=== PATIENT | female | born 1960 | race Caucasian/White ===

== ENCOUNTER 2021-05-25 12:14 | Inpatient (IN) | payer BC ==
[2021-05-25] MEDS ORDERED: CLINDAMYCIN 600MG PREMIX IVPB 600 MG/50 ML BAG IVPB ONE (13:31)
[2021-05-25] MEDS ORDERED: IMIPENEM/CILASTATIN SODIUM 500 MG in SODIUM CHLORIDE 100 ML IV ONE (13:52)
[2021-05-25] MEDS ORDERED: VANCOMYCIN 1 GM in D5W (PRE-DOCKED) 1,000 MG/250 ML IVPB ONE (13:59)
[2021-05-25 14:18] LABS: BASO % 0.7 % (0-2.0); EOS % 1.9 % (0-4.5); HEMATOCRIT 35.9 % (32.4-45.2); HEMOGLOBIN 12.1 GM/dL (10.7-15.3); LYMPH % 28.9 % (8-40); MCH 28.2 pg (25.7-33.7); MCHC 33.7 g/dl (32.0-36.0); MEAN CELL VOLUME 83.9 fl (80-96); MEAN PLT VOLUME 8.1 fl (7.5-11.1); MONO % 7.3 % (3.8-10.2); NEUT % 61.2 % (42.8-82.8); PLATELET COUNT 238 10^3/uL (134-434); RBC 4.28 M/mm3 (3.60-5.2); RDW 13.6 % (11.6-15.6); WHITE BLOOD COUNT 7.3 K/mm3 (4.0-10.0)
[2021-05-25 14:40] LABS: CHLORIDE 129 mmol/L (98-107)
[2021-05-25 14:42] LABS: BLOOD UREA NITROGEN 15.9 mg/dL (7-18); CALCIUM 8.8 mg/dL (8.5-10.1); CO2 32 mmol/L (21-32); GLUCOSE,RANDOM 115 mg/dL (74-106)
[2021-05-25 14:46] LABS: CREATININE 0.8 mg/dL (0.55-1.3); SGOT/AST 15 U/L (15-37); SGPT/ALT 23 U/L (13-61)
[2021-05-25 14:47] LABS: BILIRUBIN,TOTAL 0.5 mg/dL (0.2-1); TOT PROT 7.3 g/dl (6.4-8.2)
[2021-05-25] MEDS ORDERED: VANCOMYCIN 1 GM PREMIX - 1 GM/200 ML BAG IVPB ONE ×2 (14:47→15:03)
[2021-05-25 14:48] LABS: ALK PHOS 88 U/L (45-117)
[2021-05-25 14:53] LABS: ANION GAP 11 MMOL/L (8-16); SODIUM 173 mmol/L (136-145)
[2021-05-25] MEDS ORDERED: VANCOMYCIN 1,000 MG in DEXTROSE 5%-WATER - 250 ML IVPB ONE (15:05)
[2021-05-25] MEDS ORDERED: VANCOMYCIN 1 GRAM (PRE-DOCKED) 1,000 MG/250 ML BAG IVPB ONE ×2 (15:12→18:46)
[2021-05-25 16:18] LABS: CHLORIDE 105 mmol/L (98-107); SODIUM 143 mmol/L (136-145)
[2021-05-25 16:21] LABS: BLOOD UREA NITROGEN 15.2 mg/dL (7-18); CALCIUM 8.9 mg/dL (8.5-10.1); CO2 32 mmol/L (21-32); GLUCOSE,RANDOM 113 mg/dL (74-106)
[2021-05-25 16:24] LABS: CREATININE 0.8 mg/dL (0.55-1.3)
[2021-05-25 16:39] LABS: ANION GAP 6 MMOL/L (8-16)
[2021-05-25] MEDS ORDERED: POTASSIUM CHLORIDE TABS 20 MEQ TABLET.ER (FP) PO ONE ×3 (16:42→23:07)
[2021-05-25] MEDS ORDERED: POTASSIUM CHLORIDE 20 MEQ PREMIX IVPB 100 ML IVPB ONE (16:43)
[2021-05-25] MEDS ORDERED: KCL 10 MEQ IVPB 10 MEQ/100 ML INFUS.BAG IVPB ONE ×3 (17:27→20:15)
[2021-05-25] MEDS: KCL 10 MEQ IVPB 10 MEQ/100 ML INFUS.BAG IVPB SCH ×3 (17:34→20:19)
[2021-05-25] MEDS ORDERED: VANCOMYCIN HCL 1,500 MG in DEXTROSE 5%-WATER - 250 ML IVPB SCH ×2 (19:30→22:00)
[2021-05-25] MEDS ORDERED: VANCOMYCIN 2,000 MG in DEXTROSE 5%-WATER - 250 ML IVPB SCH (22:00)
[2021-05-25] MEDS ORDERED: ENOXAPARIN NA (PORCINE) 30 MG/0.3 ML DISP.SYRIN SQ SCH (22:00)
[2021-05-25 22:50] LABS: CALCIUM 8.2 mg/dL (8.5-10.1)
[2021-05-25 22:51] LABS: BLOOD UREA NITROGEN 14.3 mg/dL (7-18)
[2021-05-25 22:54] LABS: CREATININE 0.8 mg/dL (0.55-1.3)
[2021-05-25] MEDS ORDERED: ENOXAPARIN NA (PORCINE) 40 MG/0.4 ML DISP.SYRIN SQ ONE (23:29)
[2021-05-25] MEDS: ENOXAPARIN NA (PORCINE) 30 MG/0.3 ML DISP.SYRIN SQ SCH (23:34)
[2021-05-26 06:54] VITALS: BMI 49.3
[2021-05-26] MEDS ORDERED: VANCOMYCIN PREMIX 1.5 GM 1,500 MG/300 ML BAG IVPB SCH (07:00)
[2021-05-26 08:53] LABS: HEMATOCRIT 32.4 % (32.4-45.2); HEMOGLOBIN 10.9 GM/dL (10.7-15.3); MCH 28.2 pg (25.7-33.7); MCHC 33.6 g/dl (32.0-36.0); MEAN PLT VOLUME 8.4 fl (7.5-11.1); PLATELET COUNT 199 10^3/uL (134-434); RBC 3.85 M/mm3 (3.60-5.2); RDW 13.6 % (11.6-15.6); WHITE BLOOD COUNT 5.9 K/mm3 (4.0-10.0)
[2021-05-26 09:16] LABS: ALBUMIN 2.4 g/dl (3.4-5.0); BLOOD UREA NITROGEN 13.7 mg/dL (7-18); CALCIUM 8.4 mg/dL (8.5-10.1); MAGNESIUM 2.2 mg/dL (1.8-2.4)
[2021-05-26 09:17] LABS: CHOLESTEROL 145 mg/dL (50-200); TRIGLYCERIDES 93 mg/dL (0-150)
[2021-05-26 09:18] LABS: LDL CHOLESTEROL (ONLY SJRH) 96 mg/dL (5-100)
[2021-05-26 09:19] LABS: CREATININE 0.7 mg/dL (0.55-1.3); PHOSPHOROUS 2.6 mg/dL (2.5-4.9)
[2021-05-26 09:20] LABS: HDL CHOLESTEROL 34 mg/dL (40-60)
[2021-05-26 09:21] LABS: BILIRUBIN,TOTAL 0.6 mg/dL (0.2-1)
[2021-05-26] MEDS ORDERED: POTASSIUM CHLORIDE TABS 20 MEQ TABLET.ER (FP) PO ONE ×2 (09:36→15:41)
[2021-05-26] MEDS: ENOXAPARIN NA (PORCINE) 30 MG/0.3 ML DISP.SYRIN SQ SCH (09:57)
[2021-05-26] MEDS: VANCOMYCIN 1 GRAM (PRE-DOCKED) 1,000 MG/250 ML BAG IVPB SCH ×2 (09:57→23:00)
[2021-05-26] MEDS ORDERED: FUROSEMIDE 40 MG TABLET (FP) PO SCH (14:00)
[2021-05-26] MEDS: ENOXAPARIN NA (PORCINE) 40 MG/0.4 ML DISP.SYRIN SQ SCH (21:58)
[2021-05-27] MEDS ORDERED: BENZOCAINE/MENTH/CETYLPYRD CL 1 EACH LOZENGE MM PRN (08:04)
[2021-05-27 08:50] LABS: HEMATOCRIT 32.5 % (32.4-45.2); MCH 28.3 pg (25.7-33.7); MCHC 33.8 g/dl (32.0-36.0); MEAN CELL VOLUME 83.6 fl (80-96); MEAN PLT VOLUME 8.3 fl (7.5-11.1); PLATELET COUNT 172 10^3/uL (134-434); RBC 3.89 M/mm3 (3.60-5.2); RDW 13.8 % (11.6-15.6); WHITE BLOOD COUNT 4.9 K/mm3 (4.0-10.0)
[2021-05-27 09:10] LABS: CALCIUM 8.2 mg/dL (8.5-10.1)
[2021-05-27 09:11] LABS: BLOOD UREA NITROGEN 13.6 mg/dL (7-18)
[2021-05-27 09:14] LABS: CREATININE 0.8 mg/dL (0.55-1.3)
[2021-05-27] MEDS: VANCOMYCIN 1 GRAM (PRE-DOCKED) 1,000 MG/250 ML BAG IVPB SCH ×2 (10:17→21:55)
[2021-05-27] MEDS: ENOXAPARIN NA (PORCINE) 40 MG/0.4 ML DISP.SYRIN SQ SCH ×2 (10:17→21:54)
[2021-05-28 11:18] LABS: HEMATOCRIT 33.6 % (32.4-45.2); HEMOGLOBIN 11.4 GM/dL (10.7-15.3); MCH 28.4 pg (25.7-33.7); MCHC 34.1 g/dl (32.0-36.0); MEAN CELL VOLUME 83.5 fl (80-96); MEAN PLT VOLUME 8.1 fl (7.5-11.1); PLATELET COUNT 209 10^3/uL (134-434); RBC 4.02 M/mm3 (3.60-5.2); RDW 13.7 % (11.6-15.6); WHITE BLOOD COUNT 5.6 K/mm3 (4.0-10.0)
[2021-05-28] MEDS: ENOXAPARIN NA (PORCINE) 40 MG/0.4 ML DISP.SYRIN SQ SCH ×2 (11:18→23:09)
[2021-05-28] MEDS: VANCOMYCIN 1 GRAM (PRE-DOCKED) 1,000 MG/250 ML BAG IVPB SCH ×2 (11:20→23:09)
[2021-05-28 11:38] LABS: CALCIUM 8.4 mg/dL (8.5-10.1)
[2021-05-28 11:39] LABS: BLOOD UREA NITROGEN 13.1 mg/dL (7-18)
[2021-05-28 11:42] LABS: CREATININE 0.7 mg/dL (0.55-1.3)
[2021-05-28] MEDS ORDERED: ACETAMINOPHEN 325 MG TABLET (FP) PO PRN (11:56)
[2021-05-29] MEDS: ENOXAPARIN NA (PORCINE) 40 MG/0.4 ML DISP.SYRIN SQ SCH ×2 (09:12→23:44)
[2021-05-29 10:22] LABS: HEMATOCRIT 32.9 % (32.4-45.2); HEMOGLOBIN 11.5 GM/dL (10.7-15.3); MCHC 34.9 g/dl (32.0-36.0); MEAN CELL VOLUME 83.1 fl (80-96); PLATELET COUNT 196 10^3/uL (134-434); RBC 3.96 M/mm3 (3.60-5.2); RDW 14.1 % (11.6-15.6); WHITE BLOOD COUNT 5.3 K/mm3 (4.0-10.0)
[2021-05-29] MEDS: VANCOMYCIN 1 GRAM (PRE-DOCKED) 1,000 MG/250 ML BAG IVPB SCH ×2 (10:34→23:47)
[2021-05-29 10:59] LABS: BLOOD UREA NITROGEN 12.7 mg/dL (7-18); CALCIUM 8.1 mg/dL (8.5-10.1)
[2021-05-29 11:00] LABS: MAGNESIUM 2.2 mg/dL (1.8-2.4)
[2021-05-29 11:03] LABS: PHOSPHOROUS 2.7 mg/dL (2.5-4.9)
[2021-05-29 11:04] LABS: CREATININE 0.9 mg/dL (0.55-1.3)
[2021-05-30 08:41] LABS: BASO % 0.9 % (0-2.0); EOS % 3.3 % (0-4.5); HEMATOCRIT 33.5 % (32.4-45.2); HEMOGLOBIN 11.3 GM/dL (10.7-15.3); MCH 28.5 pg (25.7-33.7); MCHC 33.9 g/dl (32.0-36.0); MEAN PLT VOLUME 8.3 fl (7.5-11.1); NEUT % 55.8 % (42.8-82.8); PLATELET COUNT 170 10^3/uL (134-434); RBC 3.98 M/mm3 (3.60-5.2); RDW 13.7 % (11.6-15.6); WHITE BLOOD COUNT 4.9 K/mm3 (4.0-10.0)
[2021-05-30 09:00] LABS: ALBUMIN 2.3 g/dl (3.4-5.0); CALCIUM 8.2 mg/dL (8.5-10.1); MAGNESIUM 2.3 mg/dL (1.8-2.4)
[2021-05-30 09:03] LABS: PHOSPHOROUS 3.2 mg/dL (2.5-4.9)
[2021-05-30 09:04] LABS: CREATININE 0.7 mg/dL (0.55-1.3)
[2021-05-30 09:17] LABS: BILIRUBIN,TOTAL 0.3 mg/dL (0.2-1)
[2021-05-30] MEDS ORDERED: PT OWN MED DRAWER 7, Y5N ONE (10:15)
[2021-05-30] MEDS: ENOXAPARIN NA (PORCINE) 40 MG/0.4 ML DISP.SYRIN SQ SCH ×2 (10:18→22:49)
[2021-05-30] MEDS: VANCOMYCIN 1 GRAM (PRE-DOCKED) 1,000 MG/250 ML BAG IVPB SCH ×2 (10:48→22:51)
[2021-05-31 09:09] LABS: BLOOD UREA NITROGEN 12.3 mg/dL (7-18); CALCIUM 8.3 mg/dL (8.5-10.1)
[2021-05-31 09:12] LABS: CREATININE 0.7 mg/dL (0.55-1.3)
[2021-05-31 09:19] LABS: HEMATOCRIT 33.1 % (32.4-45.2); HEMOGLOBIN 11.2 GM/dL (10.7-15.3); MCH 28.5 pg (25.7-33.7); MCHC 33.7 g/dl (32.0-36.0); MEAN CELL VOLUME 84.6 fl (80-96); MEAN PLT VOLUME 8.6 fl (7.5-11.1); PLATELET COUNT 177 10^3/uL (134-434); RBC 3.92 M/mm3 (3.60-5.2); RDW 14.3 % (11.6-15.6); WHITE BLOOD COUNT 5.1 K/mm3 (4.0-10.0)
[2021-05-31] MEDS: ENOXAPARIN NA (PORCINE) 40 MG/0.4 ML DISP.SYRIN SQ SCH (10:49)
[2021-05-31] MEDS: VANCOMYCIN 1 GRAM (PRE-DOCKED) 1,000 MG/250 ML BAG IVPB SCH (10:50)
[2021-05-31] MEDS ORDERED: FUROSEMIDE 40 MG TABLET (FP) PO ONE (10:59)
[2021-05-31] MEDS ORDERED: FUROSEMIDE 40 MG/4 ML INJECTABLE VIAL IVPB ONE (11:00)
[2021-05-31 15:46] VITALS: BP 139/81; PULSE 71; TEMP 98.3
== END 2021-05-31 18:37 | disposition home or self-care (01) | DRG 603 ==
LOC: JER 12:14 → JERBED 14:33 → J8W 05-26 02:43
PROVIDERS: ADMIT Internal Medicine; ATTEND Internal Medicine
DX: L03.116 Cellulitis of left lower limb (principal); Z68.42 Body mass index [BMI] 45.0-49.9, adult; L03.115 Cellulitis of right lower limb; E66.01 Morbid (severe) obesity due to excess calories; E87.6 Hypokalemia; R73.03 Prediabetes; R06.00 Dyspnea, unspecified
CPT/HCPCS: 36415; 71045-TC-FY; 73590-TC-LT-FY; 73590-TC-RT-FY; 80048; 80053; 80061; 83036; 83735; 84100; 84443; 85025; 85027; 87070; 87205; 93005; 93010; 93970-TC; 99285-25; C9803; G0463-25; G0480; U0003; U0005